=== PATIENT | female | born 1990 | race African-American/Black ===

== ENCOUNTER 2018-12-26 06:38 | Emergency (ER) | payer MEDICAID ==
[~2018-12-26] VITALS: Ht 165.1 cm; Wt 62.0 kg
[2018-12-26] MEDS ORDERED: HYDROCODONE/ACETAMINOPHEN 5/325MG TABLET PO ONE (07:15)
[2018-12-26] MEDS ORDERED: TETRACAINE 0.5% OPHTH DROPS 4ML LEFTEYE ONE (09:00)
[2018-12-26] MEDS ORDERED: FLUORESCEIN SODIUM 1MG/STRIP LEFTEYE ONE (09:00)
[2018-12-26] MEDS ORDERED: IBUPROFEN 600MG TABLET PO NR (09:12)
[2018-12-26 09:26] VITALS: BP 125/77
== END 2018-12-26 10:16 | disposition home or self-care (01) ==
LOC: ER 06:48
DX: S00.511A Abrasion of lip, initial encounter (principal); H57.12 Ocular pain, left eye; M54.2 Cervicalgia; R51 Headache; M25.571 Pain in right ankle and joints of right foot; F17.200 Nicotine dependence, unspecified, uncomplicated; V49.49XA Driver injured in collision with other motor vehicles in traffic accident, initial encounter; Y93.89 Activity, other specified; Y92.89 Other specified places as the place of occurrence of the external cause; Y99.8 Other external cause status; Z88.0 Allergy status to penicillin
CPT/HCPCS: 70486; 73610; 99284